=== PATIENT | male | born 1975 | race Caucasian/White ===

== ENCOUNTER → 2023-11-22 | Outpatient (CLI) | payer OTHER, SELFPAY ==
--- NOTE | 2023-11-22 08:23 | US_ITS ---
STUDY: SUPERFICIAL ULTRASOUND - LEFT GROIN. REASON FOR EXAM: Male, 48 years old. Left groin pain -- Possible hernia TECHNIQUE: A superficial ultrasound was performed with real-time and static amos-scale imaging. COMPARISON: None. FINDINGS: No evidence of herniation. Incidental note is made of a epididymal cyst on the left side measuring 1.4 cm x 1.6 cm x 1.1 cm. US/Ext Non Vasc Limited/Soft Tiss IMPRESSION: No evidence of inguinal hernia. Epididymal cyst measuring 1.4 cm x 1.6 x 1.1 cm. Electronically Signed: Christopher Patino MD at 12:38 EDT ,
== END | disposition home or self-care (01) ==
PROVIDERS: PCP Family Medicine; Referring Provider Surgery; Visit Provider Surgery
DX: R10.32 Left lower quadrant pain (principal)
CPT/HCPCS: 76882

== ENCOUNTER → 2023-12-03 | Outpatient (CLI) | payer OTHER, SELFPAY ==
--- NOTE | 2023-12-03 14:10 | CT_ITS ---
STUDY: CT PELVIS WITHOUT CONTRAST REASON FOR EXAM: Male, 48 years old. Left groin pain RADIATION DOSAGE (If Supplied By Facility): CTDIvol = ( 28.16 ) mGy, DLP = ( 1060.30 ) mGycm TECHNIQUE: Transaxial imaging of the pelvis was performed with oral contrast, and without intravenous administration of contrast material. Individualized dose optimization techniques were used for this CT. COMPARISON: None. FINDINGS: Normal urinary bladder. Findings suggestive of small bilateral hydroceles. Normal visualized small intestine. There are scattered colonic diverticula of the sigmoid colon consistent with chronic diverticulosis. There is no pelvic fluid. There is no pelvic mass lesion or lymphadenopathy. Normal visualized pelvic arteries. Small umbilical hernia containing fat. Normal osseous structures. CT/Pelvis without IV Contrast IMPRESSION: Findings suggestive of small bilateral hydroceles more prominent on the right side. Electronically Signed: Christopher Patino MD at 15:05 EDT ,
== END | disposition home or self-care (01) ==
PROVIDERS: PCP Family Medicine; Referring Provider Surgery; Visit Provider Surgery
DX: R10.32 Left lower quadrant pain (principal)
CPT/HCPCS: 72192